=== PATIENT | female | born 1960 | race Hispanic/Latino ===

== ENCOUNTER 2019-09-12 17:56 | Emergency (ER) | payer SELFPAY ==
[~2019-09-12] VITALS: Ht 157.5 cm; Wt 75.0 kg
[~2019-09-12 17:56] MED LIST: AMITRIPTYLIN25 MG PO; BACTRIM DS1 TAB PO; GLYBURIDE5 MG PO; LOSARTAN POT50 MG PO; MELOXICAM7.5 MG PO; METFORMIN500 M1 PO; METFORMIN500 MG PO
[2019-09-12 19:14] LABS: HEMATOCRIT 38.9 % (37.0-47.0); HEMOGLOBIN 12.8 g/dl (12.0-16.0); IMMATURE GRANULOCYTES 0.4 % (0.0-5.0); MEAN CELL VOLUME 87.2 fL CALC (80.0-100.0); MEAN CORPUSCULAR HGB 28.7 pG CALC (26.0-32.0); MEAN CORPUSCULAR HGB CONC 32.9 g/L CALC (32.0-36.0); NEUT# 5.4 thou/uL (2.00-7.15); RED BLOOD COUNT 4.46 mill/uL (4.20-5.60); RED CELL DISTRI WIDTH 14.6 % (11.5-15.5)
[2019-09-12 19:36] LABS: ALBUMIN 4.7 g/dL (3.2-5.0); ALKALINE PHOSPHATASE 123 u/l (38-126); ANION GAP 16 (6-22 (CALC)); BILIRUBIN, TOTAL 0.4 mg/dL (0.0-1.4); BUN 8 mg/dL (7-17); BUN/CREATININE RATIO 23 (12-20 (CALC)); CARBON DIOXIDE 23 mmol/l (22-30); CHLORIDE 100 mmol/l (95-108); CREATININE 0.4 mg/dL (0.5-1.0); GFR > 60 ML/MIN (>=60 (CALC)); GFR FOR AFR.AMER. > 60 ML/MIN (>=60 (CALC)); SGOT/AST 47 u/l (14-36); SODIUM 136 mmol/l (137-146); TOTAL PROTEIN 8.8 g/dL (6.3-8.2)
[2019-09-12 20:05] LABS: TSH, 3RD GENERATION 0.51 uIU/mL (0.47 - 4.68)
[2019-09-12 23:20] LABS: URINE BILIRUBIN - DIPSTICK NEGATIVE (NEGATIVE); URINE BLOOD DIPSTICK TRACE-INTACT (NEGATIVE); URINE COLOR YELLOW; URINE GLUCOSE - DIPSTICK >=1000 mg/dL (NEGATIVE); URINE KETONE NEGATIVE (NEGATIVE); URINE LEUK ESTERASE NEGATIVE (NEGATIVE); URINE NITRITE - DIPSTICK NEGATIVE (Negative); URINE PROTEIN - DIPSTICK 100 mg/dL (NEG-TRACE); URINE UROBILINOGEN - DIPSTICK 0.2 E.U./dL (0.2)
[2019-09-12 23:38] LABS: URINE SQUAMOUS EPITHELIAL CELL FEW EPI/hpf (0-FEW)
[2019-09-12] MEDS ORDERED: TRAMADOL HCL50 MG PO (23:58)
[2019-09-13 00:44] VITALS: BP 140/70
== END 2019-09-13 00:30 | disposition home or self-care (01) | DRG 761 ==
LOC: ED 17:56
PROVIDERS: Family Medicine
DX: N93.9 Abnormal uterine and vaginal bleeding, unspecified (principal); R51 Headache; R05 Cough; I10 Essential (primary) hypertension; E11.9 Type 2 diabetes mellitus without complications; Z79.84 Long term (current) use of oral hypoglycemic drugs
CPT/HCPCS: Q9967

== ENCOUNTER 2021-01-04 08:03 | Emergency (ER) | payer SELFPAY ==
[~2021-01-04] VITALS: Ht 157.5 cm; Wt 84.0 kg
[~2021-01-04 08:03] MED LIST changes: +TRAMADOL HCL50 MG PO
[2021-01-04 09:13] LABS: HEMATOCRIT 40.3 % (37.0-47.0); HEMOGLOBIN 13.2 g/dl (12.0-16.0); IMMATURE GRANULOCYTES 0.4 % (0.0-5.0); MEAN CELL VOLUME 86.3 fL CALC (80.0-100.0); MEAN CORPUSCULAR HGB 28.3 pG CALC (26.0-32.0); MEAN CORPUSCULAR HGB CONC 32.8 g/dL CAL (32.0-36.0); NEUT# 17.62 thou/uL (2.00-7.15); RED BLOOD COUNT 4.67 mill/uL (4.20-5.60); RED CELL DISTRI WIDTH 15.4 % (11.5-15.5)
[2021-01-04 09:27] LABS: ALBUMIN 4.5 g/dL (3.2-5.0); ALKALINE PHOSPHATASE 92 u/l (38-126); AMYLASE 47 u/l (30-110); BUN 7 mg/dL (8-23); BUN/CREATININE RATIO 16 (12-20 (CALC)); CHLORIDE 94 mmol/l (95-108); CREATININE 0.4 mg/dL (0.5-1.0); GFR > 60 ML/MIN (>=60 (CALC)); GFR FOR AFR.AMER. > 60 ML/MIN (>=60 (CALC)); LIPASE 51 u/l (23-300); POTASSIUM 2.6 mmol/l (3.5-5.1); SGOT/AST 22 u/l (9-36); SODIUM 132 mmol/l (137-146); TOTAL PROTEIN 8.5 g/dL (6.3-8.2)
[2021-01-04 09:28] LABS: ANION GAP 12 (6-22 (CALC)); BILIRUBIN, TOTAL 0.8 mg/dL (0.0-1.4); CARBON DIOXIDE 29 mmol/l (22-30); INTERNATIONAL NORMALIZED RATIO 1.1 RATIO (0.7-1.3); PROTHROMBIN TIME 10.7 SECONDS (9.0-12.5)
[2021-01-04] MEDS ORDERED: PIOGLITAZONE HC30 MG PO (10:00)
[2021-01-04] MEDS ORDERED: HYDROCODONE/ACE1 T12 PO (10:01)
[2021-01-04] MEDS ORDERED: SIMVASTATIN10 MG PO (10:01)
[2021-01-04] MEDS ORDERED: TRAMADOL HYDROC50 MG PO (10:02)
[2021-01-04 10:20] LABS: URINE BLOOD DIPSTICK TRACE-INTACT (NEGATIVE); URINE GLUCOSE - DIPSTICK 500 mg/dL (NEGATIVE); URINE KETONE 40 mg/dL (NEGATIVE); URINE LEUK ESTERASE NEGATIVE (NEGATIVE); URINE PROTEIN - DIPSTICK 100 mg/dL (NEG-TRACE); URINE SPECIFIC GRAVITY >=1.030; URINE UROBILINOGEN - DIPSTICK 0.2 E.U./dL (0.2)
[2021-01-04 10:21] LABS: URINE BILIRUBIN - DIPSTICK SMALL (NEGATIVE); URINE COLOR AMBER
[2021-01-04 10:22] LABS: URINE NITRITE - DIPSTICK NEGATIVE (Negative)
[2021-01-04 10:26] LABS: URINE SQUAMOUS EPITHELIAL CELL FEW EPI/hpf (0-FEW)
[2021-01-04 14:50] VITALS: BP 154/76
== END 2021-01-04 14:50 | disposition short-term general hospital (02) | DRG 392 ==
LOC: ED 08:03
DX: R10.31 Right lower quadrant pain (principal); R10.32 Left lower quadrant pain; D72.829 Elevated white blood cell count, unspecified; R11.2 Nausea with vomiting, unspecified; I10 Essential (primary) hypertension; E11.9 Type 2 diabetes mellitus without complications; Z85.43 Personal history of malignant neoplasm of ovary; Z85.118 Personal history of other malignant neoplasm of bronchus and lung; Z79.84 Long term (current) use of oral hypoglycemic drugs; Z20.822 Contact with and (suspected) exposure to COVID-19
CPT/HCPCS: Q9967

== ENCOUNTER 2021-06-17 09:11 | Day surgery (SDC) | payer SELFPAY ==
[~2021-06-17] VITALS: Ht 157.5 cm; Wt 81.2 kg
[~2021-06-17 09:11] MED LIST changes: +HYDROCODONE/ACE1 T12 PO; +LYRICA75 MG PO; +METFORMIN500 M2 PO; +NOVOLIN 70/30 INNLT SC; +PIOGLITAZONE HC30 MG PO; +SIMVASTATIN10 MG PO; +TRAMADOL HYDROC50 MG PO; +TRAZODONE50 MG PO
[2021-06-17 11:43] VITALS: BP 137/67
== END 2021-06-17 11:30 | disposition home or self-care (01) | DRG 951 ==
LOC: ENDO 09:11 → ORM 11:00 → ENDO 11:00
PROVIDERS: ATTEND Surgery
PROC: 0DJD8ZZ Inspection of Lower Intestinal Tract, Via Natural or Artificial Opening Endoscopic (ICD-10-PCS; principal; 2021-06-17)
DX: Z09 Encounter for follow-up examination after completed treatment for conditions other than malignant neoplasm (principal); Z93.3 Colostomy status